=== PATIENT | male | born 1975 | race Caucasian/White ===

== ENCOUNTER 2016-05-06 20:25 | Emergency (ER) | payer BC ==
--- NOTE | 2016-05-06 21:31 | ER Document Report ---
ED Medical Screen (RME) - General Chief Complaint: Groin Pain Stated Complaint: FLANK PAIN Time seen by provider: 21:25 Mode of Arrival: Wheelchair Information source: Patient Notes: 40-year-old male presents to ED for left groin pain since morning. States the area looks swollen and darker. States she was seen recently for pain on the right side and was told that he probably had a hernia and was told to follow up with a surgeon. States he could not go to the surgeon but could not go due to starting a new job. Spoke with Dr. Mercado will get a groin ultrasound and a urine. I have greeted and performed a rapid initial assessment of this patient. A comprehensive ED assessment and evaluation of the patient, analysis of test results and completion of medical decision making process will be conducted by an additional ED providers.
[2016-05-07 04:15] LABS: APPEARANCE,URINE CLEAR; BILIRUBIN,URINE NEGATIVE (NEGATIVE); GLUCOSE, URINE NEGATIVE (NEGATIVE); KETONES,URINE NEGATIVE (NEGATIVE); LEUKOCYTE ESTERASE,URINE NEGATIVE (NEGATIVE); NITRITE,URINE NEGATIVE (NEGATIVE); PROTEIN,URINE NEGATIVE (NEGATIVE); URINE SPECIFIC GRAVITY 1.013
--- NOTE | 2016-05-07 05:15 | ER Document Report ---
ED GI/ - General Chief Complaint: Groin Pain Stated Complaint: FLANK PAIN Mode of Arrival: Wheelchair Notes: Patient is a 40-year-old male that comes emergency department for chief complaint of left groin pain. Patient states the area appears to be a hernia, he is familiar with hernias because he is very had an umbilical and right inguinal hernia repair performed in the past. Patient states he was referred to [facility] already by urgent care. Patient denies nausea, vomiting, fever, inability to have bowel movements, states that the area became very painful earlier, denies pain at this time. He denies smoking. TRAVEL OUTSIDE OF THE [place] IN LAST 30 DAYS: No - Related Data Allergies/Adverse Reactions: amlodipine [From [employer]] Allergy (Verified 05/06/16 21:29) Past Medical History - General Information source: Patient - Social History Smoking Status: Former Smoker Chew tobacco use (# tins/day): No Frequency of alcohol use: Social Drug Abuse: None Lives with: Family Family History: Reviewed & Not Pertinent Patient has suicidal ideation: No Patient has homicidal ideation: No - Past Medical History Cardiac Medical History: Reports: Hx Hypertension Renal/ Medical History: Denies: Hx Peritoneal Dialysis Past Surgical History: Reports: Hx Orthopedic Surgery - right shoulder, back surgery - Immunizations Hx Diphtheria, Pertussis, Tetanus Vaccination: Yes Review of Systems - Review of Systems Constitutional: No symptoms reported EENT: No symptoms reported Cardiovascular: No symptoms reported Respiratory: No symptoms reported Gastrointestinal: See HPI Genitourinary: No symptoms reported Male Genitourinary: No symptoms reported Musculoskeletal: No symptoms reported Skin: No symptoms reported Hematologic/Lymphatic: No symptoms reported Neurological/Psychological: No symptoms reported Physical Exam - Vital signs Vitals: Temp Pulse Resp BP Pulse Ox 98.4 F 69 18 156/93 H 99 05/06/16 21:25 05/06/16 21:25 05/06/16 21:25 05/06/16 21:25 05/06/16 21:25 Interpretation: Normal - General General appearance: Appears well, Alert In distress: None - HEENT Head: Normocephalic, Atraumatic Eyes: Normal Pupils: PERRL - Respiratory Respiratory status: No respiratory distress Chest status: Nontender Breath sounds: Normal Chest palpation: Normal - Cardiovascular Rhythm: Regular Heart sounds: Normal auscultation Murmur: No - Abdominal Inspection: Normal Distension: No distension Bowel sounds: Normal Tenderness: Other - There is a palpable hernia in the left inguinal region, however there is an easily reducible hernia which did not come back out, remained soft. I did not appreciate any significant tenderness to the area, there is no rigidity to the abdomen, there is no guarding over any of the abdomen Organomegaly: No organomegaly - Back Back: Normal, Nontender - Extremities General upper extremity: Normal inspection, Nontender, Normal color, Normal ROM , Normal temperature General lower extremity: Normal inspection, Nontender, Normal color, Normal ROM , Normal temperature, Normal weight bearing. No: Bradley's sign - Neurological Neuro grossly intact: Yes Cognition: Normal Orientation: AAOx4 [place] Coma Scale Eye Opening: Spontaneous [place] Coma Scale Verbal: Oriented Katelyn Coma Scale Motor: Obeys Commands [place] Coma Scale Total: 15 Speech: Normal Motor strength normal: LUE, RUE, LLE, RLE Sensory: Normal - Psychological Associated symptoms: Normal affect, Normal mood - Skin Skin Temperature: Warm Skin Moisture: Dry Skin Color: Normal Course - Re-evaluation Re-evalutation: Urine unremarkable, ultrasound reviewed and shows left inguinal hernia with fat but no bowel at the time of ultrasound, patient does not have an incarcerated hernia on examination with a soft and nontender belly and a reducible hernia area. Patient was provided with a copy of his results, refer to the surgical clinic again, I did give him some pain medication and stool softener but cautioned him that if the pain comes significant or if the area becomes incarcerated (which was described) that he needs to return to the emergency department immediately. Patient states understanding and agreement. - Vital Signs Vital signs: Temp Pulse Resp BP Pulse Ox 98.0 F 73 18 139/88 H 99 05/07/16 03:13 05/07/16 05:24 05/07/16 05:24 05/07/16 05:24 05/07/16 05:24 - Laboratory Laboratory results interpreted by me: 05/06/16 23:40 Urine Urobilinogen 2.0 H Discharge - Discharge Clinical Impression: Left inguinal hernia Condition: Stable Disposition: HOME, SELF-CARE Additional Instructions: The ultrasound and exam are consistent with a hernia in the left groin area ( left inguinal hernia). Please follow-up with the surgical clinic as referred to have this repaired. Take pain medication if needed, take a stool softener if she takes pain medication, however if the pain becomes severe return to the ED. Return immediately for any concerning or worsening symptoms including severe pain to the area, protrusion that you cannot push back and, fever, etc. Prescriptions: Docusate Sodium [Colace 100 mg Capsule] 100 mg PO DAILY #30 capsule Oxycodone HCl/Acetaminophen [Percocet 5-325 mg Tablet] 1 - 2 tab PO Q4H PRN #12 tablet PRN Reason: Forms: Return to School Referrals: [facility] [Provider Group] - Follow up in 3-5 days
[2016-05-07 05:26] VITALS: BP 139/88
== END 2016-05-07 05:24 | disposition home or self-care (01) ==
LOC: ER 20:25
DX: K40.90 Unilateral inguinal hernia, without obstruction or gangrene, not specified as recurrent (principal); R10.30 Lower abdominal pain, unspecified; R10.9 Unspecified abdominal pain; Z87.891 Personal history of nicotine dependence
CPT/HCPCS: 76857; 81001; 99284

== ENCOUNTER 2017-09-23 23:29 | Emergency (ER) | payer BC, MEDICAID ==
[2017-09-24] MEDS ORDERED: HYDROMORPHONE HCL INJ/PF 2 MG/ML AMPULE IV ONE (01:26)
--- NOTE | 2017-09-24 01:29 | ER Document Report ---
ED General - General Chief Complaint: Groin Pain Stated Complaint: ABDOMINAL PAIN Time Seen by Provider: 09/24/17 01:22 Notes: Patient is a 41-year-old male who presents with complaint of the left inguinal hernia. He says he has had it for over a year. He says it usually reduces on its own. He said for last 3-4 days is been out and not been able to reduce and he started having some pain associated with it today and therefore is come to the ER. He said he has had bowel movements today but says his bowel movements have decreased some today. No blood in stool. No vomiting. No fevers. No pain in the remainder of his abdomen. No other complaints at this time. Patient has history of neurofibromatosis. He has a history of previous hernias in different locations and previous hernia repairs. TRAVEL OUTSIDE OF THE [place] IN LAST 30 DAYS: No - Related Data Allergies/Adverse Reactions: amlodipine [From [employer]] Allergy (Verified 05/06/16 21:29) Past Medical History - Social History Smoking Status: Never Smoker Frequency of alcohol use: Occasional Drug Abuse: None Family History: Reviewed & Not Pertinent - Past Medical History Cardiac Medical History: Reports: Hx Hypertension Renal/ Medical History: Denies: Hx Peritoneal Dialysis Past Surgical History: Reports: Hx Orthopedic Surgery - right shoulder, back surgery - Immunizations Hx Diphtheria, Pertussis, Tetanus Vaccination: Yes Review of Systems - Review of Systems Notes: My Normal Review Basic REVIEW OF SYSTEMS: CONSTITUTIONAL : Denies fever, chills, or sweats. Denies recent illness. GASTROINTESTINAL: Denies abdominal pain. Denies nausea, vomiting, or diarrhea. Inguinal hernia. GENITOURINARY: Denies difficulty urinating, painful urination, burning, frequency, or blood in urine. MUSCULOSKELETAL: Denies neck or back pain or joint pain or swelling. SKIN: Denies rash or skin lesions. NEUROLOGICAL: Denies altered mental status or loss of consciousness. Denies headache. Denies weakness or paralysis or loss of use of either side. Denies problems with gait or speech. Denies sensory or motor loss. ALL OTHER SYSTEMS REVIEWED AND NEGATIVE. Physical Exam - Vital signs Vitals: Temp Pulse Resp BP Pulse Ox 98.8 F 77 18 171/99 H 99 09/23/17 23:41 09/23/17 23:41 09/23/17 23:41 09/23/17 23:41 09/23/17 23:41 - Notes Notes: General Appearance: Well nourished, alert, cooperative, no acute distress, mild obvious discomfort. Vitals: reviewed, See vital signs table. Eyes: PERRL, EOMI, Conjuctiva clear Mouth: No decreasd moisture Lungs: No wheezing, No rales, No rhonci, No accessory muscle use, good air exchange bilaterally. Heart: Normal rate, Regular rythm, No murmur, no rub Abdomen: Normal BS, soft, No rigidity, no abdominal tenderness. Patient does have a left hernia. It is soft and easily palpable. It is not firm or hard. Is currently partially reducible. I will give the patient pain medicine to try to fully reduce the hernia. Skin: warm, dry, appropriate color, skin lesions consistent with neurofibromatosis. Neuro: speech clear, oriented x 3, normal affect, responds appropriately to questions. Course - Re-evaluation Re-evalutation: 09/24/17 01:53 Patient given a dose of pain medicine. Inguinal hernia easily quickly reduced after given pain medicine. Patient has to drive home and therefore will watch for 2 hours to make sure that the effect of pain medicine is gone so he can safely drive home. 09/24/17 04:40 Patient feels well and has no pain and looks well. Hernias reduced. I will discharge the patient with referral to surgery clinic. I informed him to return to ER immediately if he has recurrent hernia that is not easily reducible on his own, fevers, blood in the stool, vomiting, or if he develops a firm hard hernia. Patient agrees with plan will be discharged home. Dictation of this chart was performed using voice recognition software; therefore, there may be some unintended grammatical errors. - Vital Signs Vital signs: Temp Pulse Resp BP Pulse Ox 98.8 F 77 18 142/91 H 97 09/23/17 23:41 09/23/17 23:41 09/24/17 03:01 09/24/17 03:01 09/24/17 03:01 Discharge - Discharge Clinical Impression: Inguinal hernia Qualifiers: Obstruction and gangrene presence: without obstruction or gangrene Laterality: unilateral Recurrence: not specified as recurrent Qualified Code(s): K40.90 - Unilateral inguinal hernia, without obstruction or gangrene, not specified as recurrent Condition: Good Disposition: HOME, SELF-CARE Additional Instructions: Please call the surgery clinic office this morning to make an appointment. The phone number for the surgery clinic is under Dr. Caruso in your discharge paperwork. Please return to ER if you have recurrence of the hernia that does not reduce easily, worsening pain, fevers, blood in your stool, or vomiting. If you ever develop a hernia that is firm and hard like a rock than he should return to ER immediately and do not try to attempt to reduce on your own. Referrals: NAVARRO CARUSO MD [ACTIVE STAFF] - Follow up in 3-5 days
[2017-09-24 04:48] VITALS: BP 133/81
== END 2017-09-24 04:45 | disposition home or self-care (01) ==
LOC: ER 23:29
DX: K40.90 Unilateral inguinal hernia, without obstruction or gangrene, not specified as recurrent (principal); R10.30 Lower abdominal pain, unspecified; I10 Essential (primary) hypertension
CPT/HCPCS: 99283; 96374; J1170